=== PATIENT | female | born 1945 | race Caucasian/White ===

== ENCOUNTER 2021-03-12 10:05 | Emergency (ER) | payer MEDICARE, OTHER ==
[~2021-03-12] VITALS: Ht 152.4 cm; Wt 108.9 kg
[2021-03-12] MEDS ORDERED: HYDROCODONE/APAP 5MG-325MG TAB PO ONE (10:45)
[2021-03-12 13:09] VITALS: BP 134/76
== END 2021-03-12 13:36 | disposition home or self-care (01) ==
LOC: ER 11:20
DX: M25.562 Pain in left knee (principal); M17.12 Unilateral primary osteoarthritis, left knee; I10 Essential (primary) hypertension; I25.10 Atherosclerotic heart disease of native coronary artery without angina pectoris; E78.5 Hyperlipidemia, unspecified; F41.9 Anxiety disorder, unspecified; K21.9 Gastro-esophageal reflux disease without esophagitis
CPT/HCPCS: 93971; 99284

== ENCOUNTER 2022-10-05 17:21 | Emergency (ER) | payer MEDICARE ==
[~2022-10-05] VITALS: Ht 144.8 cm; Wt 90.7 kg
[2022-10-05] MEDS ORDERED: TRIAMTERENE-HC1 EAC2 (18:19)
[2022-10-05] MEDS ORDERED: CLOTRIMAZOLE-BE15 GM TOP (18:19)
[2022-10-05] MEDS ORDERED: ABILIFY2 MG PO (18:19)
[2022-10-05] MEDS ORDERED: MYRBETRIQ50 MG (18:19)
[2022-10-05] MEDS ORDERED: HYDROCODON-ACE1 EA12 (18:19)
[2022-10-05] MEDS ORDERED: WARFARIN SODIU2.5 MG (18:19)
[2022-10-05] MEDS ORDERED: DOXYCYCLINE HY100 MG PO (18:19)
[2022-10-05] MEDS ORDERED: PANTOPRAZOLE SO40 MG (18:19)
[2022-10-05] MEDS ORDERED: DULOXETINE HCL30 MG (18:19)
[2022-10-05] MEDS ORDERED: CLINDAMYCIN HC300 MG PO (19:17)
[2022-10-05 19:42] VITALS: BP 145/80
== END 2022-10-05 19:42 | disposition home or self-care (01) ==
LOC: FSED 17:27
DX: R60.9 Edema, unspecified (principal); T36.4X5A Adverse effect of tetracyclines, initial encounter; T50.995A Adverse effect of other drugs, medicaments and biological substances, initial encounter; L01.00 Impetigo, unspecified; I10 Essential (primary) hypertension; K21.9 Gastro-esophageal reflux disease without esophagitis; F32.A Depression, unspecified; D68.9 Coagulation defect, unspecified; E78.5 Hyperlipidemia, unspecified; I25.10 Atherosclerotic heart disease of native coronary artery without angina pectoris; Z86.718 Personal history of other venous thrombosis and embolism
CPT/HCPCS: 71046; 80053; 81003; 82553; 83880; 84484; 85025; 85379; 85610; 99284

== ENCOUNTER 2024-12-11 14:19 | Emergency (ER) | payer MEDICARE ==
[~2024-12-11] VITALS: Ht 144.8 cm; Wt 80.3 kg
[~2024-12-11 14:19] MED LIST: ABILIFY2 MG PO; CLINDAMYCIN HC300 MG PO; CLOTRIMAZOLE-BE15 GM TOP; DOXYCYCLINE HY100 MG PO; DULOXETINE HCL30 MG; HYDROCODON-ACE1 EA12; MYRBETRIQ50 MG; PANTOPRAZOLE SO40 MG; TRIAMTERENE-HC1 EAC2; WARFARIN SODIU2.5 MG
[2024-12-11 14:39] VITALS: PULSE 92; RESP 20; TEMP 97.3; O2SAT 97
[2024-12-11] MEDS ORDERED: AZITHROMYCIN250 MG PO (15:18)
[2024-12-11] MEDS ORDERED: NASACORT16.9 ML (15:18)
== END 2024-12-11 15:25 | disposition home or self-care (01) ==
LOC: FSED 14:40
DX: R05.9 Cough, unspecified (principal); J40 Bronchitis, not specified as acute or chronic; L29.9 Pruritus, unspecified; J30.9 Allergic rhinitis, unspecified; Z11.52 Encounter for screening for COVID-19
CPT/HCPCS: 0223U; 71046; 87400; 99284